=== PATIENT | female | born 1965 | race Caucasian/White ===

== ENCOUNTER 2016-09-23 00:53 | Inpatient (IN) ==
--- NOTE | 2016-09-23 01:28 | Emergency Department Note ---
Evelia Fleming Brittany, am scribing for, and in the presence of, Kaila Alvarez DO 01: 19. IAntonio Debra, DO, personally performed the services described in this documentation, ascribed by Carmelita Altamirano in my presence, and it is both accurate and complete . Arrival - Arrival Chief Complaint: Extremity Injury Stated Complaint: R hip fx ED Nursing Triage Note: C/C transfer from [facility] ER for right hip fracture. Pt states she lost balance and fell. Mode of Arrival: Stretcher Limitations: No Limitations Source: Patient - History of Present Illness HPI Narrative: This is a 51 y/o white female,who presents to the ED by EMS for further evaluation of a right hip FX. She was transferred from [facility] after she fell and fractured the right hip. She states she was at home making a salad when her right leg gave out and she fell. She is a known [facility] patient. She complains of right hip pain. Pt has no other complaints/pain in the ED at this time. Pt has a PMHx of bipolar, herniated disk, and back/neck problems. Pt has had a hysterectomy, appendectomy, and tonsilectomy. Pt is a current every day smoker. 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) Consistency: constant Severity: moderate Allergies/Adverse Reactions: Allergies Allergy/AdvReac Type Severity Reaction Status Date / Time cephalexin [From Keflex] Allergy Unknown/Unable Verified 09/23/16 01:08 to obtain Erythromycin Base Allergy Unknown/Unable Verified 09/23/16 01:08 to obtain penicillin G AdvReac ANAPHYLAXIS Verified 09/23/16 01:08 Review of System - Review of System 12 point system: reviewed and no additional remarkable complaints except as stated - Review of System Review of Systems: Fall Musculoskeletal: Present: leg pain (Right hip fracture) Medical,Surgical,& Family Hx - Medical History Psychological: History of: Bipolar Disorder Musculoskeletal: History of: Back/Neck Problems, Herniated Disk, Musculoskeletal Problems (Dr Mercedes pt) - Surgical History HEENT Surgeries: Surgical HX of: Tonsilectomy & Adenoidectomy Abdominal Surgeries: Surgical HX of: Appendectomy Reproductive Surgeries: Surgical HX of;: Hysterectomy - Social History Smoking Status: Current every day smoker Frequency of Alcohol Use: None Type of Drug Use: None Exam Vital Signs: Vital Signs Temperature 97 F L 09/23/16 00:54 Pulse Rate 89 09/23/16 01:14 Respiratory Rate 14 09/23/16 00:54 Blood Pressure 158/99 09/23/16 00:54 O2 Sat by Pulse Oximetry 95 09/23/16 00:54 - Eye Eye exam: Present: normal appearance, PERRL, EOMI. Absent: conjunctival injection, nystagmus, miosis, mydriasis - ENT ENT exam: Present: normal exam, normal oropharynx, mucous membranes moist, other (Edentulous) - Neck Neck exam: Present: normal inspection, full ROM, trachea midline. Absent: tenderness, meningismus, lymphadenopathy, thyromegaly - Chest Chest inspection: Present: normal inspection, symmetric chest wall rise. Absent : tenderness, rash, abscess - Respiratory Respiratory exam: Present: normal lung sounds bilaterally. Absent: rales, respiratory distress, rhonchi, stridor, wheezes - Cardiovascular Cardiovascular exam: Present: regular rate, normal rhythm, normal heart sounds. Absent: murmur, rubs, gallop, clicks, JVD - Abdominal Exam Abdominal exam: Present: soft, normal bowel sounds. Absent: distention, tenderness, guarding, rebound, rigidity - Rectal Exam Rectal exam: Present: deferred - Extremities Exam Extremities exam: Present: tenderness (Right hip tendnerness), normal capillary refill. Absent: pedal edema, joint swelling, calf tenderness - Expanded Lower Right Lower Hip/Pelvis exam: Present: internal rotation, shortening Upper leg exam: Present: normal inspection, full ROM Knee exam: Present: normal inspection, full ROM Lower leg exam: Present: normal inspection, full ROM Ankle exam: Present: normal inspection, full ROM Foot/toe exam: Present: normal inspection, full ROM Neurovascular/Tendon exam: Present: normal capillary refill - Back Exam Back exam: Present: normal inspection, full ROM. Absent: tenderness, muscle spasm, rashes - Neurological Exam Neurological exam: Present: alert, oriented X3, CN II-XII intact. Absent: motor sensory deficit - Psychiatric Psychiatric exam: Present: normal affect, normal mood. Absent: depressed, agitated, anxious, flat affect, manic - Skin Skin exam: Present: warm, dry, intact, normal color. Absent: rash, cyanosis, diaphoresis, erythema, pallor, mottled Course Course Narrative: spoke with Dr Rodriguez who will admit pt Disposition Clinical Impression: Closed right hip fracture Case discussed with: patient Disposition: Still a Patient Condition: Stable Time of Disposition: 01:26
[2016-09-23] MEDS ORDERED: MAGNESIUM HYDROXIDE SUSP 30 ML UDCUP PO PRN ×2 (01:38→15:28)
[2016-09-23] MEDS ORDERED: MORPHINE 2 MG/1 ML SYRINGE ONE (01:38)
[2016-09-23] MEDS ORDERED: MORPHINE 2 MG/1 ML SYRINGE IV STA (01:38)
[2016-09-23] MEDS: DEXTROSE 5% NACL 0.45% 1,000 ML IV SCH ×2 (03:13→18:01)
[2016-09-23] MEDS: MORPHINE 2 MG/1 ML SYRINGE IV SCH ×8 (03:15→18:04)
--- NOTE | 2016-09-23 06:53 | Orthopedic History & Physical ---
Assessment and Plan (1) Intertrochanteric fracture of right femur Status: Acute Assessment and plan: Discussed injury with she and her mom this morning. I had a difficult time explaining the injury and procedure to them as they continue to interrupt with her chronic complaints of back pain and numbness in arms and legs. Eventually, I was able to describe the fracture and the need for fixation. I explained with would be doing an open reduction and fixation of the fracture. She would have restricted weightbearing for approximately 4 weeks due to the comminuted nature of the fracture and the risks of hardware failure or fracture displacement.. Also noted that she has significant osteoarthritis of the hip will likely need to be addressed down the road at some point. Risks, alternatives, and benefits to undergoing this procedure were discussed in great detail, the patient voiced understanding desire proceed. Risks discussed included, but were not limited to, bleeding, infection, damage to arteries and nerves, nonunion, malunion, need for revision surgery, as well as medical complications. Due to her chronic back and leg issues as well as her hip fracture, she would benefit from inpatient rehab if this can be arranged postoperatively. Current Visit: Yes Qualifiers: Encounter type: initial encounter Fracture type: closed Qualified Code(s) : S72.141A - Displaced intertrochanteric fracture of right femur, initial encounter for closed fracture History of Present Illness Chief complaint: Right hip pain History of present illness: Ms. Brand is a 51 year old female who had a fall onto her right side earlier today. She denies any syncope or presyncopal symptoms. She has significant issues with her legs complains of chronic numbness, she gets back and neck injections by Dr. Mercedes. She denies any antecedent hip pain. She is transferred from [facility] after diagnosis of a right proximal femur fracture. Home Medications Medication Instructions Recorded Confirmed Type Acyclovir [Acyclovir Cap/Tab] 400 mg PO BID 09/23/16 09/23/16 History Gabapentin 800 mg PO QID 09/23/16 09/23/16 History OLANZapine [Olanzapine Odt] 10 mg SL BEDTIME 09/23/16 09/23/16 History Quetiapine Fumarate 400 mg PO BEDTIME 09/23/16 09/23/16 History Temazepam 30 mg PO BEDTIME 09/23/16 09/23/16 History clonazePAM [Clonazepam] 2 mg PO BID 09/23/16 09/23/16 History Allergies Allergy/AdvReac Type Severity Reaction Status Date / Time cephalexin [From Keflex] Allergy Unknown/Unable Verified 09/23/16 01:08 to obtain Erythromycin Base Allergy Unknown/Unable Verified 09/23/16 01:08 to obtain penicillin G AdvReac ANAPHYLAXIS Verified 09/23/16 01:08 12 point system: reviewed and no additional remarkable complaints except as stated Medical,Surgical,& Family Hx - Medical History Psychological: History of: Bipolar Disorder Respiratory: History of: COPD Genitourinary: History of: Bladder Problem Gastrointestinal: History of: Pancreatitis Musculoskeletal: History of: Back/Neck Problems, Herniated Disk, Musculoskeletal Problems (Dr Mercedes pt) - Surgical History HEENT Surgeries: Surgical HX of: Tonsilectomy & Adenoidectomy Abdominal Surgeries: Surgical HX of: Appendectomy, Cholecystectomy, EGD Reproductive Surgeries: Surgical HX of;: Hysterectomy Orthopedic Surgeries: Surgical HX of;: Orthopedic Surgery (carpal tunnel surgery twice on right wrist) - Social History Smoking Status: Current every day smoker Frequency of Alcohol Use: None Type of Drug Use: None Exam - Constitutional Vitals: Period Temp Pulse Resp BP Sys/Soto Pulse Ox Last 24 Hr 97 F-97.2 F 81-94 18-22 146-157/90-96 94-99 Exam: General appearance: no acute distress Head exam: normal inspection Eye exam: EOMI Neck exam: normal inspection Respiratory exam: clear to auscultation bilaterally Cardiovascular exam: regular GI/Abdominal exam: normal bowel sounds Right lower extremity: Slight external rotation. Nontender the knee ankle and foot. She does not cooperate very much with exam but she will wiggle her toes a little bit. She has a palpable dorsalis pedis pulse. Results - Diagnostic Findings Procedure: X-ray: image reviewed by me (Comminuted intratrochanteric fracture of the right femur)
[2016-09-23] MEDS ORDERED: CLINDAMYCIN INJ 900 MG in PREMIX 1 EACH IV ONE (07:46)
--- NOTE | 2016-09-23 08:08 | EKG Report ---
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
[2016-09-23] MEDS: LACTATED RINGERS 1,000 ML IV SCH ×2 (13:56→18:06)
[2016-09-23] MEDS ORDERED: ONDANSETRON 4 MG/2 ML VIAL IV PRN (15:28)
[2016-09-23] MEDS ORDERED: NALOXONE 0.4 MG/ML VIAL IV PRN (15:28)
[2016-09-23] MEDS ORDERED: ACETAMINOPHEN 325 MG TABLET PO PRN (15:28)
[2016-09-23] MEDS ORDERED: MORPHINE PCA 30 MG/30 ML SYRINGE IV SCH (15:30)
--- NOTE | 2016-09-23 15:37 | XRay Report ---
XR hip OR RT Indication: Intraoperative C-arm fluoroscopy. Comparison: None. Technique: A total of 3 images were obtained intraoperatively using C-arm fluoroscopy. Findings: Images were reviewed and deemed satisfactory by the operative physician. Total fluoroscopy time was not listed. Impression: 1. C-arm usage as detailed. 09/23/2016 3:32 PM PROCEDURE INTERPRETED AT [facility] DEPARTMENT OF RADIOLOGY Final Report Signed by: Dr. Louis Reed
[2016-09-23] MEDS ORDERED: MORPHINE PCA 30 MG/30 ML SYRINGE IV ONE (15:55)
[2016-09-23] MEDS ORDERED: PROPOFOL 200 MG/20 ML VIAL IV ONE (16:05)
[2016-09-23] MEDS ORDERED: MIDAZOLAM 2 MG/2 ML VIAL ONE (16:06)
[2016-09-23] MEDS ORDERED: fentaNYL 100 MCG/2 ML VIAL ONE (16:06)
[2016-09-23] MEDS ORDERED: ACETAMINOPHEN 1,000 MG/100 ML VIAL IV ONE (16:06)
[2016-09-23] MEDS ORDERED: ONDANSETRON 4 MG/2 ML VIAL ONE (16:06)
[2016-09-23] MEDS ORDERED: KETOROLAC 30 MG/1 ML VIAL ONE (16:06)
[2016-09-23] MEDS ORDERED: METOCLOPRAMIDE 10 MG/2 ML VIAL ONE (16:07)
[2016-09-23] MEDS ORDERED: SEVOFLURANE 1 UNIT/15 MINUTE INH ONE (16:07)
--- NOTE | 2016-09-23 16:13 | Anesthesia Post-Op ---
Anesthesia Post OP - Post Ansesthetic Evaluation Patient seen in post op: Yes Resp: within normal limits CV: within normal limits Mental: within normal limits Temp: within normal limits [id number]: within normal limits Nausea and Vomiting: within normal limits Pain: within normal limits
[2016-09-23] MEDS: GABAPENTIN 400 MG CAPSULE PO SCH ×2 (18:12→20:59)
[2016-09-23] MEDS: QUEtiapine 100 MG TABLET PO SCH (20:59)
[2016-09-23] MEDS: clonazePAM 0.5 MG TABLET PO SCH ×2 (20:59→21:43)
[2016-09-23] MEDS: TEMAZEPAM 15 MG CAPSULE PO SCH (21:00)
[2016-09-23] MEDS: ACYCLOVIR 200 MG CAPSULE PO SCH (21:00)
[2016-09-23] MEDS: ACETAMINOPHEN 500 MG TABLET PO SCH (21:00)
[2016-09-23] MEDS: OLANZapine 5 MG TABLET PO SCH (21:00)
[2016-09-23] MEDS: CLINDAMYCIN INJ 900 MG in PREMIX 1 EACH IV SCH (21:06)
[2016-09-24] MEDS: DEXTROSE 5% NACL 0.45% 1,000 ML IV SCH ×2 (00:53→05:11)
[2016-09-24] MEDS: MORPHINE 2 MG/1 ML SYRINGE IV SCH ×6 (00:54→18:43)
[2016-09-24] MEDS: ACETAMINOPHEN 500 MG TABLET PO SCH ×3 (01:05→13:07)
[2016-09-24 04:33] LABS: Basophils # 0.1 10*3/uL (0.0-0.2); Basophils % 0.8 % (0.0-0.8); Eosinophils # 0.3 10*3/uL (0.0-0.87); Eosinophils % 4.6 % (0.00-10.9); Hematocrit 33.7 VOL% (35.7-47.0); Hemoglobin 10.9 GM/DL (12.0-16.0); Immature Granulocytes % 0.5 %; Immature Granulocytes Absolute 0.03 #; Lymphocytes % 30.8 % (21.3-54.2); Mean Corpuscular HGB Conc 32.3 GM/DL (32-36); Mean Corpuscular Hemoglobin 32 PG (27-34); Mean Corpuscular Volume 97.7 FL (87-102); Mean Platelet Volume 9.5 FL (9.6-12.0); Monocytes # 0.6 10*3/uL (0.11-0.8); Monocytes % 9.4 % (1.7-12.7); Neutrophils # 3.5 10*3/uL (1.4-7.4); Neutrophils % 53.9 % (38.7-73.9); Platelet Count 285 T/CUMM (130-400); Red Blood Count 3.45 MC/CUMM (3.8-5.5); Red Cell Distribution Width 14.6 % (9.3-17.3); White Blood Count 6.5 T/CUMM (4-12)
[2016-09-24 04:58] LABS: Calcium 8.1 MG/DL (8.5-10.1); Osmolality,Calculated 285.8 MOS/KG (273-304); Potassium 3.9 MMOL/L (3.5-5.1)
[2016-09-24] MEDS: CLINDAMYCIN INJ 900 MG in PREMIX 1 EACH IV SCH (05:23)
[2016-09-24] MEDS: GABAPENTIN 400 MG CAPSULE PO SCH ×4 (09:13→21:29)
[2016-09-24] MEDS: clonazePAM 0.5 MG TABLET PO SCH (09:13)
[2016-09-24] MEDS: ACYCLOVIR 200 MG CAPSULE PO SCH ×2 (09:13→21:29)
--- NOTE | 2016-09-24 09:45 | Orthopedic Progress Note ---
Assessment and Plan (1) Intertrochanteric fracture of right femur Status: Acute Assessment and plan: DVT prophylaxis Continue therapy I have encouraged the patient to stay out of bed as much as possible Discharge planning for swing bed Current Visit: Yes Qualifiers: Encounter type: initial encounter Fracture type: closed Qualified Code(s) : S72.141A - Displaced intertrochanteric fracture of right femur, initial encounter for closed fracture Orthopedics - Subjective Interval history: Patient is sitting in the bedside chair this morning, her pain is currently controlled. She desires to get back in bed. On exam, dressings clean and dry, neurovascular exam the right lower extremity is unchanged Exam - Constitutional Vitals: Period Temp Pulse Resp BP Sys/Soto Pulse Ox Last 24 Hr 97 F-97.6 F 84-107 15-20 82-164/43-98 92-100 Results - Labs CBC & BMP: 09/24/16 03:51 09/24/16 03:51
[2016-09-24] MEDS: OLANZapine 5 MG TABLET PO SCH (21:29)
[2016-09-25] MEDS: QUEtiapine 100 MG TABLET PO SCH ×3 (00:06→20:51)
[2016-09-25] MEDS: TEMAZEPAM 15 MG CAPSULE PO SCH ×3 (00:06→20:54)
[2016-09-25] MEDS: MORPHINE 2 MG/1 ML SYRINGE IV SCH ×3 (00:06→06:59)
[2016-09-25] MEDS: clonazePAM 0.5 MG TABLET PO SCH ×3 (00:06→10:01)
[2016-09-25 02:59] LABS: Basophils # 0.1 10*3/uL (0.0-0.2); Basophils % 0.7 % (0.0-0.8); Eosinophils # 0.5 10*3/uL (0.0-0.87); Hematocrit 31.7 VOL% (35.7-47.0); Hemoglobin 10.4 GM/DL (12.0-16.0); Immature Granulocytes % 0.4 %; Immature Granulocytes Absolute 0.03 #; Lymphocytes # 2.4 10*3/uL (1.4-4.0); Lymphocytes % 31.1 % (21.3-54.2); Mean Corpuscular HGB Conc 32.8 GM/DL (32-36); Mean Corpuscular Hemoglobin 32 PG (27-34); Mean Corpuscular Volume 97.8 FL (87-102); Monocytes # 0.6 10*3/uL (0.11-0.8); Monocytes % 7.4 % (1.7-12.7); Neutrophils # 4.2 10*3/uL (1.4-7.4); Neutrophils % 54.4 % (38.7-73.9); Platelet Count 255 T/CUMM (130-400); Red Blood Count 3.24 MC/CUMM (3.8-5.5); Red Cell Distribution Width 14.6 % (9.3-17.3); White Blood Count 7.7 T/CUMM (4-12)
[2016-09-25] MEDS: ENOXAPARIN 40 MG/0.4 ML SYRINGE SUBCUT SCH ×2 (08:09→10:00)
--- NOTE | 2016-09-25 08:36 | Orthopedic Progress Note ---
Assessment and Plan (1) Intertrochanteric fracture of right femur Status: Acute Assessment and plan: DVT prophylaxis Continue therapy twice daily Discharge planning for swing bed Consult Dr. Fallon for pain management, patient known to him Current Visit: Yes Qualifiers: Encounter type: initial encounter Fracture type: closed Qualified Code(s) : S72.141A - Displaced intertrochanteric fracture of right femur, initial encounter for closed fracture Orthopedics - Subjective Interval history: Patient complains of pain in the right hip. States her [place] is not helping. On exam dressings clean and dry, she is neurovascularly intact. Exam - Constitutional Vitals: Period Temp Pulse Resp BP Sys/Soto Pulse Ox Last 24 Hr 96.6 F-98.4 F 81-99 16-20 93-105/50-68 90-94 Results - Labs CBC & BMP: 09/25/16 02:43 09/24/16 03:51
[2016-09-25] MEDS: ACYCLOVIR 200 MG CAPSULE PO SCH ×2 (10:00→20:53)
[2016-09-25] MEDS: GABAPENTIN 400 MG CAPSULE PO SCH ×4 (10:01→20:51)
[2016-09-25] MEDS: oxyCODONE/ACETAMINOPHEN 5-325 MG TABLET PO PRN ×3 (12:02→20:53)
[2016-09-25] MEDS: DEXTROSE 5% NACL 0.45% 1,000 ML IV SCH (16:18)
[2016-09-25] MEDS ORDERED: oxyCODONE/ACETAMINOPHEN 5-325 MG TABLET PO PRN (16:33)
--- NOTE | 2016-09-25 16:33 | Pain Management Consult Note ---
Assessment and Plan (1) Chronic pain following surgery or procedure Status: Acute Assessment and plan: will add duragesic patch and percocet Current Visit: Yes History of Present Illness Chief complaint: Right hip pain History of present illness: Ms. Brand is a 51 year old female Patient is postop after a right hip fracture repair on Sunday night. Patient is having significant pain and is requesting increase in medications. I will try a Duragesic patch to help with sustained pain relief and she can have Percocet as needed for pain Home Medications Medication Instructions Recorded Confirmed Type Acyclovir [Acyclovir Cap/Tab] 400 mg PO BID 09/23/16 09/23/16 History Gabapentin 800 mg PO QID 09/23/16 09/23/16 History OLANZapine [Olanzapine Odt] 10 mg SL BEDTIME 09/23/16 09/23/16 History Quetiapine Fumarate 400 mg PO BEDTIME 09/23/16 09/23/16 History Temazepam 30 mg PO BEDTIME 09/23/16 09/23/16 History clonazePAM [Clonazepam] 2 mg PO BID 09/23/16 09/23/16 History Allergies Allergy/AdvReac Type Severity Reaction Status Date / Time cephalexin [From Keflex] Allergy Unknown/Unable Verified 09/23/16 01:08 to obtain Erythromycin Base Allergy Unknown/Unable Verified 09/23/16 01:08 to obtain penicillin G AdvReac ANAPHYLAXIS Verified 09/23/16 01:08 Medical,Surgical,& Family Hx - Medical History Psychological: History of: Bipolar Disorder Respiratory: History of: COPD Genitourinary: History of: Bladder Problem Gastrointestinal: History of: Pancreatitis Musculoskeletal: History of: Back/Neck Problems, Herniated Disk, Musculoskeletal Problems (Dr Mercedes pt) - Surgical History HEENT Surgeries: Surgical HX of: Tonsilectomy & Adenoidectomy Abdominal Surgeries: Surgical HX of: Appendectomy, Cholecystectomy, EGD Reproductive Surgeries: Surgical HX of;: Hysterectomy Orthopedic Surgeries: Surgical HX of;: Orthopedic Surgery (carpal tunnel surgery twice on right wrist) - Social History Smoking Status: Current every day smoker Frequency of Alcohol Use: None Type of Drug Use: None 12 point system: reviewed and no additional remarkable complaints except as stated Exam - Constitutional Vitals: Period Temp Pulse Resp BP Sys/Soto Pulse Ox Last 24 Hr 96.6 F-98.4 F 81-102 12-24 98-118/53-72 89-94 General appearance: mild distress - Head Head exam: Present: normal inspection - Eye Eye exam: Present: EOMI Pupils: Present: RANJANA - ENT ENT exam: Present: normal exam Ear exam: Present: intact Mouth exam: Present: normal external inspection - Neck Neck exam: Present: normal inspection - Respiratory Respiratory exam: Present: clear to auscultation bilaterally - Cardiovascular Cardiovascular exam: Present: RRR - GI/Abdominal GI/Abdominal exam: Present: normal bowel sounds - Expanded Right Lower Hip exam: Present: tenderness, ecchymosis Upper Leg exam: Present: tenderness Knee exam: Present: normal inspection Lower leg exam: Present: normal inspection Ankle exam: Present: normal inspection Foot/Toe exam: Present: normal inspection Neuro vascular tendon exam: Present: significant pain with passive ROM of distal joint Gait: Present: not tested/not observed - Back Exam Back exam: Present: normal inspection, vertebral tenderness - Neurological Exam Neurological exam: Present: alert, oriented X3 Results - Labs CBC & BMP: 09/25/16 02:43 09/24/16 03:51 Lab Results: I have reviewed the past 24 hour labs Specialty Discharge - Follow Up or Referrals Follow up with: Amandeep Rodriguez MD [Physician] - 10/26/16 12:30 pm
[2016-09-25] MEDS ORDERED: fentaNYL 25 MCG/HR PATCH TRANSDERM SCH (17:00)
[2016-09-25] MEDS: OLANZapine 5 MG TABLET PO SCH (20:51)
[2016-09-26 04:46] LABS: Basophils % 0.5 % (0.0-0.8); Eosinophils # 0.5 10*3/uL (0.0-0.87); Eosinophils % 6.6 % (0.00-10.9); Hematocrit 32.8 VOL% (35.7-47.0); Hemoglobin 10.5 GM/DL (12.0-16.0); Immature Granulocytes % 0.8 %; Immature Granulocytes Absolute 0.06 #; Lymphocytes # 2.8 10*3/uL (1.4-4.0); Lymphocytes % 38.2 % (21.3-54.2); Mean Corpuscular Hemoglobin 32 PG (27-34); Mean Corpuscular Volume 99.4 FL (87-102); Mean Platelet Volume 9.3 FL (9.6-12.0); Monocytes # 0.6 10*3/uL (0.11-0.8); Monocytes % 7.8 % (1.7-12.7); Neutrophils # 3.4 10*3/uL (1.4-7.4); Neutrophils % 46.1 % (38.7-73.9); Platelet Count 291 T/CUMM (130-400); Red Cell Distribution Width 14.5 % (9.3-17.3); White Blood Count 7.4 T/CUMM (4-12)
[2016-09-26] MEDS: oxyCODONE/ACETAMINOPHEN 5-325 MG TABLET PO PRN ×3 (05:14→13:11)
--- NOTE | 2016-09-26 05:56 | Pain Management Progress Note ---
Assessment and Plan (1) Chronic pain following surgery or procedure Status: Acute Assessment and plan: will add duragesic patch and percocet 09/26 continue current medications for pain until transferred to swing bed and continue same in swing bed Current Visit: Yes Pain - Subjective Interval history: Patient reports herself that the pain is better controlled since I added the Duragesic patch and give her Percocet as needed for pain. I have impressed on the patient that she will have some breakthrough pain due to recent hip surgery but overall she is better and she is ready for swing bed whenever that is arranged Exam - Constitutional Vitals: Period Temp Pulse Resp BP Sys/Soto Pulse Ox Last 24 Hr 97.0 F-99.4 F 86-109 12-24 100-118/58-82 89-96 General appearance: no acute distress - Head Head exam: Present: normal inspection - Eye Eye exam: Present: EOMI Pupils: Present: RANJANA - ENT ENT exam: Present: normal exam Ear exam: Present: intact Mouth exam: Present: normal external inspection - Neck Neck exam: Present: normal inspection - Respiratory Respiratory exam: Present: clear to auscultation bilaterally - Cardiovascular Cardiovascular exam: Present: RRR - GI/Abdominal GI/Abdominal exam: Present: normal bowel sounds - Expanded Right Lower Hip exam: Present: tenderness Upper Leg exam: Present: tenderness Knee exam: Present: normal inspection Lower leg exam: Present: normal inspection Ankle exam: Present: normal inspection Foot/Toe exam: Present: normal inspection Neuro vascular tendon exam: Present: no vascular compromise Gait: Present: not tested/not observed - Back Exam Back exam: Present: vertebral tenderness - Neurological Exam Neurological exam: Present: alert, oriented X3 - Skin Skin exam: Present: normal color Results - Labs CBC & BMP: 09/26/16 04:28 09/24/16 03:51 Lab Results: I have reviewed the past 24 hour labs Specialty Discharge - Follow Up or Referrals Follow up with: Amandeep Rodriguez MD [Physician] - 10/26/16 12:30 pm
--- NOTE | 2016-09-26 08:11 | Discharge Summary ---
Hospital Course - Hospital Course Hospital Course: 51-year-old female admitted to the hospital after sustaining a right hip fracture after fall. She was taken to the operating suite for fixation of the fracture. She tolerated procedure well transferred for stable condition postoperatively. She received routine antibiotics and thromboprophylaxis. Dr. Mercedes was consulted for aid in pain management as she is a current patient of [facility]. Due to her spine and lower extremity issues she had difficulty with physical therapy which necessitated postoperative swing bed. Once a bed was available she was medically stable she was discharged. At the time of discharge her wound was clean and dry she is neurovascularly intact in the right lower extremity. Diagnosis - Discharge Diagnosis (1) Intertrochanteric fracture of right femur Status: Acute Specialty Discharge - Follow Up or Referrals Follow up with: Amandeep Rodriguez MD [Physician] - 10/26/16 12:30 pm Discharge Plan - Discharge Data Disposition: Swing Bed, Hos Based, [facility] Condition at Discharge: Stable Discharge Diet: advance to your usual diet Activity: ambulate only with your walker Hygiene: may shower Weight Bearing at Discharge: partial weight bearing (30 pounds partial weightbearing right lower extremity) Driving: not until seen by doctor Contact your physician if you experience:: fever over 101, Difficulty voiding, Redness or swelling, Nausea/Vomiting, Shortness of breath, Bleeding, pain uncontrolled by pain medications Wound / Dressing Care Instructions: Begin daily dressing change to right hip on . Okay to shower, no tub soaks. Julia out October 12, 2016 - Discharge Medications New Aspirin EC Tab 325 mg PO DAILY #30 tablet fentaNYL 25 MCG/HR PATCH [Duragesic 25 Patch] 1 patch TRANSDERM Q3DAY #10 patch oxyCODONE/ACETAMINOPHEN 5-325 [Percocet 5-325] 1 - 2 tablet PO Q6H PRN #60 tablet PRN Reason: Pain Moderate (4-7) Acetaminophen Tab [Tylenol Tab] 650 mg PO Q6H PRN #0 tablet PRN Reason: Pain Mild (1-3) Magnesium Hydroxide Susp [Milk of Magnesia] 30 ml PO Q6H PRN #0 PRN Reason: Constipation Continue OLANZapine [Olanzapine Odt] 10 mg SL BEDTIME Gabapentin 800 mg PO QID clonazePAM [Clonazepam] 2 mg PO BID Acyclovir [Acyclovir Cap/Tab] 400 mg PO BID Quetiapine Fumarate 400 mg PO BEDTIME Temazepam 30 mg PO BEDTIME - Follow Up or Referral Follow Up: Amandeep Rodriguez MD [Physician] - 10/26/16 12:30 pm - Forms/Instructions Instructions: Open Reduction and Internal Fixation of a Hip Fracture (DC) Exam - Constitutional Vitals: Period Temp Pulse Resp BP Sys/Soto Pulse Ox Last 24 Hr 97.7 F-99.4 F 96-109 12-24 108-118/63-82 89-96 Discharge Results Labs on day of discharge: Labs from last 24 hours 09/26/16 04:28 WBC 7.4 RBC 3.30 L Hgb 10.5 L Hct 32.8 L MCV 99.4 MCH 32 MCHC 32.0 RDW 14.5 Plt Count 291 MPV 9.3 L Neut % (Auto) 46.1 Lymph % (Auto) 38.2 [place] % (Auto) 7.8 Eos % (Auto) 6.6 Baso % (Auto) 0.5 Neut # (Auto) 3.4 Lymph # (Auto) 2.8 [place] # (Auto) 0.6 Eos # (Auto) 0.5 Baso # (Auto) 0.0 Immature Gran % 0.8 Nucleated RBC % 0.0 Immature Gran # 0.06 Nucleated RBCs # 0.00 DS: Provider Date of admission: 09/23/16 01:38 Primary care physician: . No PCP Attending physician on admission: Amandeep Rodriguez MD Consults: 09/23/16 15:28 Consult to Physical Therapy [CONS] Routine Reason for Physical Therapy: Evaluate and Treat Start Therapy: Tomorrow Consult Comment: 20lb PWB RLE 09/25/16 08:35 Consult to Physician [CONS] Routine Comment: Consulting Provider: Santosh Mercedes Consulting Provider Notified: Yes When should Consulting Provider be notified: Now Person Notified: Willa called Date Notified: 09/25/16 Time Notified: 08:44 Discharging clinician: Amandeep Rodriguez MD
[2016-09-26] MEDS: clonazePAM 0.5 MG TABLET PO SCH (09:25)
[2016-09-26] MEDS: ACYCLOVIR 200 MG CAPSULE PO SCH (09:26)
[2016-09-26] MEDS: ENOXAPARIN 40 MG/0.4 ML SYRINGE SUBCUT SCH (09:26)
[2016-09-26] MEDS: GABAPENTIN 400 MG CAPSULE PO SCH ×2 (09:26→13:11)
[2016-09-26 11:54] VITALS: BP 99/62
== END 2016-09-26 14:30 | DRG 308 ==
LOC: EDBD → EDUNIT# → N.ED 00:53 → N.EDINP 01:38 → N.3E 02:04
PROVIDERS: ADMIT Orthopaedic Surgery; ATTEND Orthopaedic Surgery

== ENCOUNTER 2017-01-01 05:48 | Inpatient (IN) ==
[2017-01-01] MEDS ORDERED: VANCOMYCIN INJ 1,000 MG in SODIUM CHLORIDE 0.9% 250 ML IV ONE ×2 (06:00→18:30)
[2017-01-01] MEDS ORDERED: CLINDAMYCIN INJ 900 MG in PREMIX 1 EACH IV ONE (06:00)
[2017-01-01] MEDS ORDERED: CLINDAMYCIN INJ 50 ML IV ONE (06:09)
[2017-01-01] MEDS ORDERED: VANCOMYCIN 1,000 MG VIAL ONE (06:09)
[2017-01-01] MEDS ORDERED: NEOMYCIN/POLYMYXIN/BACITRACIN OINT 28.4 GM TUBE TOP ONE (06:36)
--- NOTE | 2017-01-01 06:48 | History and Physical Update ---
History and Physical Update - History and Physical H&P was reviewed, the patient examined and there: are no changes in the patients condition since last H&P was completed.
[2017-01-01] MEDS ORDERED: LACTATED RINGERS 1,000 ML IV SCH (07:00)
[2017-01-01] MEDS ORDERED: GLYCOPYRROLATE 0.4 MG/2 ML VIAL ONE (07:09)
[2017-01-01] MEDS ORDERED: EPINEPHrine 1 MG/ML VIAL ONE (07:09)
[2017-01-01] MEDS ORDERED: LIDOCAINE 2% 5 ML VIAL ONE (07:09)
[2017-01-01] MEDS ORDERED: KETOROLAC 30 MG/1 ML VIAL ONE (07:09)
[2017-01-01] MEDS ORDERED: SUCCINYLCHOLINE 200 MG/10 ML VIAL ONE (07:09)
[2017-01-01] MEDS ORDERED: hydrALAZINE 20 MG/1 ML VIAL ONE (07:09)
[2017-01-01] MEDS ORDERED: NEOSTIGMINE 10 MG/10 ML VIAL ONE (07:09)
[2017-01-01] MEDS ORDERED: PROPOFOL 200 MG/20 ML VIAL IV ONE ×2 (07:09→09:19)
[2017-01-01] MEDS ORDERED: ROCURONIUM 100 MG/10 ML VIAL IV ONE (07:09)
[2017-01-01] MEDS ORDERED: ONDANSETRON 4 MG/2 ML VIAL ONE (07:09)
[2017-01-01] MEDS ORDERED: PHENYLEPHRINE 50 MG/5 ML VIAL ONE (07:09)
[2017-01-01] MEDS ORDERED: LABETALOL 100 MG/20 ML VIAL IV ONE (07:09)
[2017-01-01] MEDS ORDERED: oxyCODONE IR 5 MG TABLET PO PRN ×2 (07:22)
[2017-01-01] MEDS ORDERED: MAGNESIUM HYDROXIDE SUSP 30 ML UDCUP PO PRN (07:22)
[2017-01-01] MEDS ORDERED: HYDROmorphone 2 MG/1 ML VIAL IV PRN ×3 (07:22→09:36)
[2017-01-01] MEDS ORDERED: diphenhydrAMINE CAP 25 MG CAPSULE PO PRN (07:22)
[2017-01-01] MEDS ORDERED: ONDANSETRON 4 MG/2 ML VIAL IV PRN ×2 (07:22→09:36)
[2017-01-01] MEDS ORDERED: TRANEXAMIC ACID 1,000 MG/10 ML VIAL IV ONE (07:42)
[2017-01-01] MEDS ORDERED: ALBUMIN 5% 12.5 GM/250 ML VIAL IV ONE ×2 (08:18→09:21)
[2017-01-01] MEDS ORDERED: ACETAMINOPHEN 1,000 MG/100 ML VIAL IV ONE (09:20)
[2017-01-01] MEDS ORDERED: ePHEDrine 50 MG/ML AMP ONE (09:20)
[2017-01-01] MEDS ORDERED: MIDAZOLAM 2 MG/2 ML VIAL ONE (09:20)
[2017-01-01] MEDS ORDERED: fentaNYL 100 MCG/2 ML VIAL ONE (09:21)
[2017-01-01] MEDS ORDERED: SEVOFLURANE 1 UNIT/15 MINUTE INH ONE (09:21)
[2017-01-01 09:24] LABS: Apearance,Urine CLEAR (Clear); Bacteria,Urine Occasional /HPF (Few); Bilirubin,Urine Negative (Negative); Blood, Urine Negative (Negative); Glucose,Urine (UA) Negative (Negative); Ketones,Urine Negative (Negative); Nitrite,Urine Negative (Negative); Protein,Urine Negative; RBC,Urine <1 /HPF (0-4); Squamous Epithelial Cell,Urine Occasional /HPF (0-10); Urine Color Straw (Yellow); Urine Specific Gravity 1.003 (1.001-1.035); Urine Urobilinogen < 2.0 EU/DL (0.2-1.0); WBC,Urine <1 /HPF (0-6)
[2017-01-01] MEDS: DOCUSATE SODIUM 100 MG CAPSULE PO SCH ×2 (09:49→20:27)
[2017-01-01] MEDS: KETOROLAC 30 MG/1 ML VIAL IV SCH ×3 (09:49→20:27)
[2017-01-01] MEDS: LACTATED RINGERS 1,000 ML IV SCH ×3 (09:49→21:20)
[2017-01-01] MEDS: ACYCLOVIR 200 MG CAPSULE PO SCH ×2 (10:02→20:26)
[2017-01-01] MEDS: GABAPENTIN 400 MG CAPSULE PO SCH ×4 (10:02→20:38)
--- NOTE | 2017-01-01 10:09 | XRay Report ---
Exam: XR hip 1V RT Date: 01/01/2017 7:25 AM Comparison: 09/22/2016, 09/23/2016 Indication: Postop Technique:[Portable AP right hip] Findings: Interval removal of the metallic hardware noted on prior exam. Satisfactory right total hip replacement with postoperative changes. Impression: Interval satisfactory right total hip replacement. PROCEDURE INTERPRETED AT [facility] [place] DEPARTMENT OF RADIOLOGY Final Report Signed by: Dr. Nichole Groves
--- NOTE | 2017-01-01 10:10 | Operative Note ---
Date of procedure: 01/01/17 Procedure: DIAGNOSIS: Right hip avascular necrosis, status post ORIF peritrochanteric hip fracture PROCEDURE: Conversion to right total hip arthroplasty (CPT#74010) SURGEON: Angely ASST: Cruz Recinos ANESTHESIA: General PROCEDURE and FINDINGS: After adequate anesthesia was induced, the patient was placed in lateral decubitus position. Left lower extremities prepped and draped in usual sterile fashion. Posteriolateral approach to the hip was made. Skin, subcutaneous tissue and deep fascia was incised longitudinally. Gluteus satinder muscle belly was split in line with its fibers. The vastus lateralis was elevated from the intramuscular septum exposing the hardware. The proximal portion of the gluteus satinder tendon was released. Piriformis, external rotators and capsule were taken down as a single layer as an inverted L shaped capsulotomy. Hip was dislocated. The articular surface had delaminated from the underlying subchondral bone secondary to osteonecrosis. The hardware was then removed without difficulty. Templated femoral neck cut was made. Acetabulum was prepared by sequentially reaming to 49 mm. A 50 mm Continuum acetabular shell was press-fit with excellent stability. 1 6.5 millimeter screw was placed with an excellent bite. 32 mm elevated longevity liner was placed with a dome hole plug. Femur was prepared sequentially with the box osteotome, canal finder and sequential broaches to 13. Components were trialed. A size 13 Versys fiber metal tapered stem was press-fit. A 32+3.5 mm head was placed. The component was stable posteriorly and anteriorly. Capsule was repaired with #5 Tycron. Deep fascia was closed with 0 Vicryl figure-of- eight suture. Subcutaneous tissue was closed deep with a 2-0 Vicryl runner and superficially with 3-0 interrupted buried sutures. Skin was closed with atif. Triple antibiotic ointment and a sterile occlusive dressing was applied. Surgeon / Physician: Christopher Au Jr. Discharge Plan - Discharge Medications No Action OLANZapine [Olanzapine Odt] 10 mg SL BEDTIME Gabapentin 800 mg PO QID clonazePAM [Clonazepam] 2 mg PO BEDTIME Acyclovir [Acyclovir Cap/Tab] 400 mg PO BID Quetiapine Fumarate 800 mg PO BEDTIME Temazepam 30 mg PO BEDTIME oxyCODONE/ACETAMINOPHEN 5-325 [Percocet 5-325] 1 - 2 tablet PO Q6H PRN PRN Reason: Pain Moderate To Severe (4-10) - Follow Up or Referral - Forms/Instructions
--- NOTE | 2017-01-01 11:26 | Anesthesia Post-Op ---
Anesthesia Post OP - Post Ansesthetic Evaluation Patient seen in post op: Yes Resp: within normal limits CV: within normal limits Mental: within normal limits Temp: within normal limits Ysob-Df-Yymdxjbzf: within normal limits Nausea and Vomiting: within normal limits Pain: within normal limits
[2017-01-01] MEDS: oxyCODONE/ACETAMINOPHEN 5-325 MG TABLET PO PRN ×2 (11:44→19:08)
[2017-01-01] MEDS: ACETAMINOPHEN 500 MG TABLET PO SCH ×3 (11:44→22:45)
--- NOTE | 2017-01-01 14:07 | Orthopedic Progress Note ---
Orthopedics - Subjective Interval history: Erika Brand is complaining of pain. She became very sedated with just .5mg Dilaudid. She is mildly sedated. She follows command. Her dressing is clean, dry and intact. She can flex and extend her toes and ankle. Sensation is intact. Plan: We will stop the Dilaudid and switch to morphine. Otherwise continue per protocol. Exam - Constitutional Vitals: Period Temp Pulse Resp BP Sys/Soto Pulse Ox Last 24 Hr 96.8 F-97.7 F 76-81 16-22 103-127/68-84 93-98
[2017-01-01] MEDS: MORPHINE 2 MG/1 ML SYRINGE IV PRN ×3 (14:34→20:30)
[2017-01-01] MEDS: CLINDAMYCIN INJ 900 MG in PREMIX 1 EACH IV SCH ×2 (14:34→22:46)
--- NOTE | 2017-01-01 15:24 | Pulmonology Progress Note ---
Pulmonary - PN: Subj Interval history: The patient is a 51-year-old white lady that came in today and had a right hip replacement. She was having considerable arthritis in her hip. She has been a smoker and may have just some mild COPD. She did well with anesthesia today and is not having any breathing problems. She says she is very sore but did get up already. She seems to be doing relatively well at present Exam (Progress Note) - Constitutional Vitals: Period Temp Pulse Resp BP Sys/Soto Pulse Ox Last 24 Hr 96.8 F-97.7 F 76-94 16-22 103-146/68-90 93-100 General appearance: no acute distress (The patient is resting fairly well now.) , over weight - Head Head exam: Present: normal inspection, normocephalic - Eye Eye exam: Present: EOMI. Absent: scleral icterus Pupils: Present: RANJANA - ENT ENT exam: Present: normal exam - Neck Neck exam: Absent: lymphadenopathy, thyromegaly - Respiratory Respiratory exam: Present: clear to auscultation bilaterally. Absent: wheezes - Cardiovascular Cardiovascular exam: Present: regular rate and rhythm. Absent: gallop, systolic murmur - GI/Abdominal GI/Abdominal exam: Present: normal bowel sounds, soft. Absent: distended, organomegaly, tenderness - Extremities Exam Extremities exam: Present: other (Right leg is bandaged). Absent: calf tenderness, edema - Neurological Exam Neurological exam: Present: alert, oriented X3, CN II-XII intact - Psychiatric Psychiatric exam: Present: normal affect, normal mood - Skin Skin exam: Present: warm, dry Assessment and Plan (1) Status post total hip replacement, right Status: Acute Assessment and plan: The patient had had a previous hip fracture and had a lot of pain so now she comes in for hip replacement. She is doing well so far postop. Current Visit: Yes (2) Intertrochanteric fracture of right femur Status: Acute Current Visit: No Qualifiers: Encounter type: initial encounter Fracture type: closed Qualified Code(s) : S72.141A - Displaced intertrochanteric fracture of right femur, initial encounter for closed fracture (3) Manic depressive illness Status: Chronic Assessment and plan: She is stable and continue with her medications. Current Visit: No (4) Tobacco abuse Status: Acute Assessment and plan: She certainly needs to quit smoking. Current Visit: No (5) COPD (chronic obstructive pulmonary disease) Status: Acute Assessment and plan: She will continue with bronchodilator therapy Current Visit: No
[2017-01-01] MEDS: ALBUTEROL/IPRATROPIUM 3 ML NEB RESP TX SCH (20:36)
[2017-01-01] MEDS: TEMAZEPAM 15 MG CAPSULE PO SCH (20:37)
[2017-01-01] MEDS: clonazePAM 0.5 MG TABLET PO SCH (20:37)
[2017-01-01] MEDS ORDERED: OLANZAPINE 10 MG SL SCH (21:00)
[2017-01-02] MEDS: MORPHINE 2 MG/1 ML SYRINGE IV PRN ×6 (00:12→20:55)
[2017-01-02] MEDS: KETOROLAC 30 MG/1 ML VIAL IV SCH (00:46)
[2017-01-02] MEDS: ALBUTEROL/IPRATROPIUM 3 ML NEB RESP TX SCH ×4 (01:13→19:50)
[2017-01-02] MEDS: oxyCODONE/ACETAMINOPHEN 5-325 MG TABLET PO PRN ×3 (04:53→10:17)
[2017-01-02] MEDS: ACETAMINOPHEN 500 MG TABLET PO SCH (05:02)
[2017-01-02 05:18] LABS: Basophils % 0.3 % (0.0-0.8); Eosinophils # 0.2 10*3/uL (0.0-0.87); Eosinophils % 4.1 % (0.00-10.9); Hematocrit 34.1 VOL% (35.7-47.0); Hemoglobin 11.2 GM/DL (12.0-16.0); Immature Granulocytes % 0.5 %; Immature Granulocytes Absolute 0.03 #; Lymphocytes # 1.4 10*3/uL (1.4-4.0); Lymphocytes % 23.6 % (21.3-54.2); Mean Corpuscular HGB Conc 32.8 GM/DL (32-36); Mean Corpuscular Hemoglobin 31 PG (27-34); Mean Corpuscular Volume 93.9 FL (87-102); Mean Platelet Volume 9.1 FL (9.6-12.0); Monocytes # 0.5 10*3/uL (0.11-0.8); Monocytes % 7.8 % (1.7-12.7); Neutrophils # 3.8 10*3/uL (1.4-7.4); Neutrophils % 63.7 % (38.7-73.9); Platelet Count 291 T/CUMM (130-400); Red Blood Count 3.63 MC/CUMM (3.8-5.5); Red Cell Distribution Width 15.1 % (9.3-17.3); White Blood Count 5.9 T/CUMM (4-12)
[2017-01-02 05:56] LABS: Calcium 8.2 MG/DL (8.5-10.1); Osmolality,Calculated 280.3 MOS/KG (273-304); Potassium 4.1 MMOL/L (3.5-5.1)
[2017-01-02] MEDS: FONDAPARINUX 2.5 MG/0.5 ML SYRINGE SUBCUT SCH (06:25)
[2017-01-02] MEDS: LACTATED RINGERS 1,000 ML IV SCH ×2 (07:10→13:45)
--- NOTE | 2017-01-02 07:28 | Orthopedic Progress Note ---
Orthopedics - Subjective Interval history: Ms Brand is more comfortable this morning. Dressing clean, dry and intact. Right lower extremities neurovascularly unchanged. Plan: Mobilize with physical therapy. Stop IV fluids and [place]. Plan swing bed placement. Exam - Constitutional Vitals: Period Temp Pulse Resp BP Sys/Soto Pulse Ox Last 24 Hr 96.8 F-100 F 70-107 16-22 82-149/48-94 93-100 Results - Labs CBC & BMP: 01/02/17 04:46 01/02/17 04:46
[2017-01-02] MEDS: DOCUSATE SODIUM 100 MG CAPSULE PO SCH ×2 (08:10→21:56)
[2017-01-02] MEDS: ACYCLOVIR 200 MG CAPSULE PO SCH ×2 (08:10→21:59)
[2017-01-02] MEDS: GABAPENTIN 400 MG CAPSULE PO SCH ×4 (08:10→21:58)
--- NOTE | 2017-01-02 09:00 | Pulmonology Progress Note ---
Pulmonary - PN: Subj Interval history: The patient is a 51-year-old white lady that came in and had a right hip replacement. She was having considerable arthritis in her hip. She has been a smoker and may have just some mild COPD. She did well with surgery and had a fairly good night. She still has considerable hip pain but is starting to move around better. She is not having any trouble with her breathing. She continues to do well. Exam (Progress Note) - Constitutional Vitals: Period Temp Pulse Resp BP Sys/Soto Pulse Ox Last 24 Hr 96.8 F-100 F 70-107 16-22 82-149/48-94 91-100 Exam: General appearance: no acute distress (The patient is alert and sitting up and comfortable.), over weight - Head Head exam: Present: normal inspection, normocephalic - Eye Eye exam: Present: EOMI. Absent: scleral icterus Pupils: Present: RANJANA - ENT ENT exam: Present: normal exam - Neck Neck exam: Absent: lymphadenopathy, thyromegaly - Respiratory Respiratory exam: Present: clear to auscultation bilaterally. She has good air movement with no wheezing or rales. - Cardiovascular Cardiovascular exam: Present: regular rate and rhythm. Absent: gallop, systolic murmur - GI/Abdominal GI/Abdominal exam: Present: normal bowel sounds, soft. Absent: distended, organomegaly, tenderness - Extremities Exam Extremities exam: Present: other (Right leg is bandaged). Absent: calf tenderness, edema - Neurological Exam Neurological exam: Present: alert, oriented X3, CN II-XII intact - Psychiatric Psychiatric exam: Present: normal affect, normal mood - Skin Skin exam: Present: warm, dry Results - Labs CBC & BMP: 01/02/17 04:46 01/02/17 04:46 Assessment and Plan (1) Status post total hip replacement, right Status: Acute Assessment and plan: The patient had had a previous hip fracture and had a lot of pain so now she comes in for hip replacement. She is doing well although she is still a little uncomfortable. She will have more physical therapy today. Current Visit: Yes (2) Intertrochanteric fracture of right femur Status: Acute Current Visit: No Qualifiers: Encounter type: initial encounter Fracture type: closed Qualified Code(s) : S72.141A - Displaced intertrochanteric fracture of right femur, initial encounter for closed fracture (3) Manic depressive illness Status: Chronic Assessment and plan: She is stable and continue with her medications. Current Visit: No (4) Tobacco abuse Status: Acute Assessment and plan: She certainly needs to quit smoking. Her breathing is stable so far. Current Visit: No (5) COPD (chronic obstructive pulmonary disease) Status: Acute Assessment and plan: She will continue with bronchodilator therapy. She is not having any problems at present. Current Visit: No Specialty Discharge - Follow Up or Referrals Follow up with: Christopher Au Jr., MD [Physician] -
[2017-01-02] MEDS: CELECOXIB 200 MG CAPSULE PO SCH (13:10)
[2017-01-02] MEDS: QUEtiapine 100 MG TABLET PO SCH (21:57)
[2017-01-02] MEDS: TEMAZEPAM 15 MG CAPSULE PO SCH (21:58)
[2017-01-02] MEDS: clonazePAM 0.5 MG TABLET PO SCH (21:58)
[2017-01-03] MEDS: LACTATED RINGERS 1,000 ML IV SCH ×2 (00:05→11:36)
[2017-01-03] MEDS: MORPHINE 2 MG/1 ML SYRINGE IV PRN ×8 (00:33→22:13)
[2017-01-03] MEDS: ALBUTEROL/IPRATROPIUM 3 ML NEB RESP TX SCH ×4 (00:50→19:12)
[2017-01-03] MEDS: FONDAPARINUX 2.5 MG/0.5 ML SYRINGE SUBCUT SCH (06:35)
[2017-01-03 06:40] LABS: Basophils % 0.4 % (0.0-0.8); Eosinophils # 0.4 10*3/uL (0.0-0.87); Eosinophils % 5.1 % (0.00-10.9); Hematocrit 34.3 VOL% (35.7-47.0); Hemoglobin 11.2 GM/DL (12.0-16.0); Immature Granulocytes % 0.8 %; Immature Granulocytes Absolute 0.06 #; Lymphocytes # 1.9 10*3/uL (1.4-4.0); Lymphocytes % 25.6 % (21.3-54.2); Mean Corpuscular HGB Conc 32.7 GM/DL (32-36); Mean Corpuscular Hemoglobin 31 PG (27-34); Mean Corpuscular Volume 94.8 FL (87-102); Mean Platelet Volume 9.5 FL (9.6-12.0); Monocytes # 0.7 10*3/uL (0.11-0.8); Monocytes % 9.6 % (1.7-12.7); Neutrophils # 4.3 10*3/uL (1.4-7.4); Neutrophils % 58.5 % (38.7-73.9); Platelet Count 290 T/CUMM (130-400); Red Blood Count 3.62 MC/CUMM (3.8-5.5); Red Cell Distribution Width 15.1 % (9.3-17.3); White Blood Count 7.4 T/CUMM (4-12)
--- NOTE | 2017-01-03 07:14 | Orthopedic Progress Note ---
Orthopedics - Subjective Interval history: Feeling better today. She was able to walk in the lopez yesterday. Dressing dry. Left lower extremity neurovascularly unchanged. Plan: Continue with physical therapy. Plan swing bed placement. Exam - Constitutional Vitals: Period Temp Pulse Resp BP Sys/Soto Pulse Ox Last 24 Hr 97.1 F-99.4 F 96-125 18-20 98-134/60-104 94-99 Results - Labs CBC & BMP: 01/03/17 04:51 01/02/17 04:46 Specialty Discharge - Follow Up or Referrals Follow up with: Christopher Au Jr., MD [Physician] -
--- NOTE | 2017-01-03 08:26 | Pulmonology Progress Note ---
Pulmonary - PN: Subj Interval history: The patient is a 51-year-old white lady that came in and had a right hip replacement. She was having considerable arthritis in her hip. She has been a smoker and may have just some mild COPD. She did well with physical therapy yesterday and says she sat up okay. She did get tired easily and says she had a restless night. Overall she is doing a little better. Exam (Progress Note) - Constitutional Vitals: Period Temp Pulse Resp BP Sys/Soto Pulse Ox Last 24 Hr 97.4 F-99.4 F 96-129 18-20 98-134/60-104 92-99 Exam: General appearance: no acute distress (The patient is alert and sitting up and ate well. She is doing fairly well with physical therapy.) - Head Head exam: Present: normal inspection, normocephalic - Eye Eye exam: Present: EOMI. Absent: scleral icterus Pupils: Present: RANJANA - ENT ENT exam: Present: normal exam - Neck Neck exam: Absent: lymphadenopathy, thyromegaly - Respiratory Respiratory exam: Present: clear to auscultation bilaterally. She has good air movement with no wheezing or rales. - Cardiovascular Cardiovascular exam: Present: regular rate and rhythm. Absent: gallop, systolic murmur - GI/Abdominal GI/Abdominal exam: Present: normal bowel sounds, soft. Absent: distended, organomegaly, tenderness - Extremities Exam Extremities exam: Present: other (Right leg is bandaged). She has no signs of phlebitis. - Neurological Exam Neurological exam: Present: alert, oriented X3, CN II-XII intact - Psychiatric Psychiatric exam: Present: normal affect, normal mood - Skin Skin exam: Present: warm, dry Results - Labs CBC & BMP: 01/03/17 04:51 01/02/17 04:46 Assessment and Plan (1) Status post total hip replacement, right Status: Acute Assessment and plan: The patient had had a previous hip fracture and had a lot of pain so now she comes in for hip replacement. She is doing well and has been doing more physical therapy. She is not having any new problems. Current Visit: Yes (2) Intertrochanteric fracture of right femur Status: Acute Assessment and plan: She came in for hip replacement is doing fairly well. Current Visit: No Qualifiers: Encounter type: initial encounter Fracture type: closed Qualified Code(s) : S72.141A - Displaced intertrochanteric fracture of right femur, initial encounter for closed fracture (3) Manic depressive illness Status: Chronic Assessment and plan: She does get emotional and will continue with her medications. Current Visit: No (4) Tobacco abuse Status: Acute Assessment and plan: She certainly needs to quit smoking. Her breathing is stable so far. Current Visit: No (5) COPD (chronic obstructive pulmonary disease) Status: Acute Assessment and plan: She will continue with bronchodilator therapy. She is not having any problems at present. She seems to be breathing comfortably. Current Visit: No Specialty Discharge - Follow Up or Referrals Follow up with: Christopher Au Jr., MD [Physician] -
[2017-01-03] MEDS: GABAPENTIN 400 MG CAPSULE PO SCH ×4 (08:32→20:47)
[2017-01-03] MEDS: DOCUSATE SODIUM 100 MG CAPSULE PO SCH ×2 (08:32→20:48)
[2017-01-03] MEDS: CELECOXIB 200 MG CAPSULE PO SCH (09:23)
[2017-01-03] MEDS: ACYCLOVIR 200 MG CAPSULE PO SCH ×2 (09:23→20:49)
[2017-01-03] MEDS: clonazePAM 0.5 MG TABLET PO SCH (20:48)
[2017-01-03] MEDS: QUEtiapine 100 MG TABLET PO SCH (20:49)
[2017-01-03] MEDS: TEMAZEPAM 15 MG CAPSULE PO SCH (20:50)
[2017-01-03] MEDS: oxyCODONE/ACETAMINOPHEN 5-325 MG TABLET PO PRN (20:52)
[2017-01-04] MEDS: ALBUTEROL/IPRATROPIUM 3 ML NEB RESP TX SCH ×2 (01:31→07:27)
[2017-01-04] MEDS: MORPHINE 2 MG/1 ML SYRINGE IV PRN ×2 (04:33→09:08)
[2017-01-04 04:46] LABS: Basophils % 0.5 % (0.0-0.8); Eosinophils # 0.4 10*3/uL (0.0-0.87); Eosinophils % 5.9 % (0.00-10.9); Hematocrit 33.2 VOL% (35.7-47.0); Immature Granulocytes % 1.6 %; Immature Granulocytes Absolute 0.12 #; Lymphocytes # 2.4 10*3/uL (1.4-4.0); Lymphocytes % 31.4 % (21.3-54.2); Mean Corpuscular HGB Conc 33.1 GM/DL (32-36); Mean Corpuscular Hemoglobin 31 PG (27-34); Mean Corpuscular Volume 94.1 FL (87-102); Mean Platelet Volume 9.4 FL (9.6-12.0); Monocytes # 0.7 10*3/uL (0.11-0.8); Monocytes % 9.1 % (1.7-12.7); Neutrophils # 3.9 10*3/uL (1.4-7.4); Neutrophils % 51.5 % (38.7-73.9); Platelet Count 312 T/CUMM (130-400); Red Blood Count 3.53 MC/CUMM (3.8-5.5); Red Cell Distribution Width 15.3 % (9.3-17.3); White Blood Count 7.5 T/CUMM (4-12)
[2017-01-04] MEDS: FONDAPARINUX 2.5 MG/0.5 ML SYRINGE SUBCUT SCH (05:34)
--- NOTE | 2017-01-04 07:55 | Discharge Summary ---
Hospital Course - Hospital Course Hospital Course: Erika Brand was admitted after undergoing conversion to a right total hip arthroplasty for avascular necrosis and a history of a peritrochanteric hip fracture. She received perioperative DVT and antimicrobial prophylaxis. She received physical therapy. She was discharged to [facility] in stable condition. Her dressing is clean, dry and intact. Right lower extremities neurovascularly unchanged. Specialty Discharge - Follow Up or Referrals Follow up with: Christopher Au Jr., MD [Physician] - Discharge Plan - Discharge Data Disposition: Disch/Xfer to [facility] Condition at Discharge: Stable Discharge Diet: advance to your usual diet Hygiene: may shower Weight Bearing at Discharge: weight bear as tolerated Driving: not until seen by doctor - Discharge Medications New Celecoxib [Celebrex] 200 mg PO DAILY capsule oxyCODONE IR [Roxicodone] 5 mg PO Q4H PRN tablet PRN Reason: Pain Mild (1-3) oxyCODONE IR [Roxicodone] 10 mg PO Q4H PRN tablet PRN Reason: Pain Moderate (4-7) oxyCODONE/ACETAMINOPHEN 5-325 [Percocet 5-325] 1 tablet PO Q4H PRN tablet PRN Reason: Pain Moderate (4-7) oxyCODONE/ACETAMINOPHEN 5-325 [Percocet 5-325] 2 tablet PO Q4H PRN tablet PRN Reason: Moderate Pain unrelieved by 1 Fondaparinux [Arixtra] 2.5 mg SUBCUT Q24H syringe Continue OLANZapine [Olanzapine Odt] 10 mg SL BEDTIME Gabapentin 800 mg PO QID clonazePAM [Clonazepam] 2 mg PO BID PRN PRN Reason: Anxiety Acyclovir [Acyclovir Cap/Tab] 400 mg PO BID Promethazine HCl 50 mg PO DAILY Quetiapine Fumarate 400 mg PO BID Temazepam 30 mg PO BEDTIME PRN PRN Reason: Sleep Sertraline [Zoloft] 150 mg PO DAILY Discontinued Oxycodone HCl/Acetaminophen [Oxycodone-Acetaminophen 10-325] 1 each PO TID PRN PRN Reason: Pain - Follow Up or Referral Follow Up: Christopher Au Jr., MD [Physician] - - Forms/Instructions Additional Discharge Instructions: Posterior hip precautions for 3 months. Daily dry dressing changes. Arrange for walker and bedside commode for home use. Wear BARBARA hose for 1 month. Follow-up appointment in 4 weeks. Discontinue atif and Steri-Strip wound on January 12, 2017. Prescription for Percocet 10 was written. Stop Arixtra and Celebrex when discharged from [facility] Exam - Constitutional Vitals: Period Temp Pulse Resp BP Sys/Soto Pulse Ox Last 24 Hr 96.3 F-98.2 F 94-124 18-20 105-114/63-73 90-99 Discharge Results Labs on day of discharge: Labs from last 24 hours 01/04/17 04:10 WBC 7.5 RBC 3.53 L Hgb 11.0 L Hct 33.2 L MCV 94.1 MCH 31 MCHC 33.1 RDW 15.3 Plt Count 312 MPV 9.4 L Neut % (Auto) 51.5 Lymph % (Auto) 31.4 [place] % (Auto) 9.1 Eos % (Auto) 5.9 Baso % (Auto) 0.5 Neut # (Auto) 3.9 Lymph # (Auto) 2.4 [place] # (Auto) 0.7 Eos # (Auto) 0.4 Baso # (Auto) 0.0 Immature Gran % 1.6 Nucleated RBC % 0.0 Immature Gran # 0.12 Nucleated RBCs # 0.00 Immature Plt Fraction 0.0 DS: Provider Date of admission: 01/01/17 07:22 Primary care physician: Joey Vigil Attending physician on admission: Christopher Au Jr., Consults: 01/01/17 07:22 Consult to Case Mgmt/Social Srvs [CONS] Routine Reason for Case Mgmt/Social Srvs: Rehab Home Health Equipment Consult Comment: Bedside Commode, CPM, Walker Consult to Occupational Therapy [CONS] Routine Reason for Occupational Therapy: Evaluate and Treat Consult Comment: ADL's Consult to Physical Therapy [CONS] Routine Reason for Physical Therapy: Evaluate and Treat Gait Training Start Therapy: Today Consult Comment: wbat, hip precautions 01/01/17 10:30 Consult to Physician [CONS] Routine Comment: Consulting Provider: Alberto Pritchard Consulting Provider Notified: Yes When should Consulting Provider be notified: Now Person Notified: remigio petty Date Notified: 01/01/17 Time Notified: 10:33 Discharging clinician: Christopher Au Jr., Expected date of discharge: 01/04/17
[2017-01-04] MEDS: ACYCLOVIR 200 MG CAPSULE PO SCH (09:08)
[2017-01-04] MEDS: GABAPENTIN 400 MG CAPSULE PO SCH ×2 (09:08→13:20)
[2017-01-04] MEDS: DOCUSATE SODIUM 100 MG CAPSULE PO SCH (09:08)
[2017-01-04] MEDS: CELECOXIB 200 MG CAPSULE PO SCH (09:08)
--- NOTE | 2017-01-04 09:28 | Pulmonology Progress Note ---
Pulmonary - PN: Subj Interval history: The patient is a 51-year-old white lady that came in and had a right hip replacement. She was having considerable arthritis in her hip. She has been a smoker and may have just some mild COPD. She did well yesterday and is ambulating in the lopez. She says her hip is feeling better. She is not having any breathing problems. She is going to rehab today. Exam (Progress Note) - Constitutional Vitals: Period Temp Pulse Resp BP Sys/Soto Pulse Ox Last 24 Hr 96.3 F-98.2 F 94-124 17-20 105-114/63-73 90-99 Exam: General appearance: no acute distress (The patient is alert and sitting up and ate well. She is doing fairly well with physical therapy. Overall she looks like she feels better.) - Head Head exam: Present: normal inspection, normocephalic - Eye Eye exam: Present: EOMI. Absent: scleral icterus Pupils: Present: RANJANA - ENT ENT exam: Present: normal exam - Neck Neck exam: Absent: lymphadenopathy, thyromegaly - Respiratory Respiratory exam: Present: clear to auscultation bilaterally. She has good air movement with no wheezing or rales. - Cardiovascular Cardiovascular exam: Present: regular rate and rhythm. Absent: gallop, systolic murmur - GI/Abdominal GI/Abdominal exam: Present: normal bowel sounds, soft. Absent: distended, organomegaly, tenderness - Extremities Exam Extremities exam: Present: other (Right leg is bandaged). She has no signs of phlebitis. She is not swelling very badly at all. - Neurological Exam Neurological exam: Present: alert, oriented X3, CN II-XII intact - Psychiatric Psychiatric exam: Present: normal affect, normal mood - Skin Skin exam: Present: warm, dry Results - Labs CBC & BMP: 01/04/17 04:10 01/02/17 04:46 Assessment and Plan (1) Status post total hip replacement, right Status: Acute Assessment and plan: The patient had had a previous hip fracture and had a lot of pain so now she comes in for hip replacement. She is doing well and has been doing more physical therapy. She is not having any new problems. She is going to rehab today. Current Visit: Yes (2) Intertrochanteric fracture of right femur Status: Acute Assessment and plan: She came in for hip replacement is doing fairly well. She is ambulating and feels better. Current Visit: No Qualifiers: Encounter type: initial encounter Fracture type: closed Qualified Code(s) : S72.141A - Displaced intertrochanteric fracture of right femur, initial encounter for closed fracture (3) Manic depressive illness Status: Chronic Assessment and plan: She does get emotional and will continue with her medications. Current Visit: No (4) Tobacco abuse Status: Acute Assessment and plan: She certainly needs to quit smoking. Her breathing is stable so far. Current Visit: No (5) COPD (chronic obstructive pulmonary disease) Status: Acute Assessment and plan: She will continue with bronchodilator therapy. She is not having any problems at present. She seems to be breathing comfortably. Overall she is medically stable. Current Visit: No Specialty Discharge - Follow Up or Referrals Follow up with: Christopher Au Jr., MD [Physician] - 02/01/17 12:40 pm
[2017-01-04] MEDS ORDERED: BISACODYL 10 MG SUPP RECTAL PRN (11:11)
[2017-01-04 11:51] VITALS: BP 104/76
[2017-01-04] MEDS: oxyCODONE/ACETAMINOPHEN 5-325 MG TABLET PO PRN (13:20)
--- NOTE | 2017-01-04 19:17 | Pathology Report from [facility] ---
[facility] ACCESSION # : [id number] PATIENT NAME : Jonny Brand ORDERING DR : JANICE OWUSU MD CLINICAL HX: Retained hardware RT femur, RT hip osteoarthritis POST-OP DX: Same SPECIMEN INFO: #1 Retained hardware RT femur #2 RT hip bone & tissue GROSS DESCRIPTION: Received in formalin in two parts labeled:#1 JONNY BRAND consists of hardware, submitted for gross exam only.#2 JONNY BRAND #2 consists of femoral head measuring 4.5 x 4.5 x 3.9 cm. The articular surfaces are focally degenerative with no subchondral eburnation seen. The surgical margin is smooth with no softening appreciated. Received separately in the specimen container are multiple fragments of hemorrhagic bone and soft tissue measuring 5.5 x 3.0 cm in aggregate. Flat Lock Machine Operator tissue is submitted in one cassette following decalcification. DIAGNOSIS FOR JONNY BRAND: #1 Orthopedic hardware, gross only.#2 RIGHT HIP , TOTAL REPLACEMENT: Fragments of bone and cartilage with reactive/ degenerative changes, consistent with osteoarthritis. CD138 immunostain negative for increased plasma cells. COLLECTED DATE: 01/01/2017 [facility] REPORT DATE: 01/04/2017 ELECTRONICALLY SIGNED BY: Cyn Simon M.D. 01/04/2017 - 14:40:10 [facility]
== END 2017-01-04 14:05 | DRG 301 ==
LOC: N.OR 05:48 → N.SDSINP 05:49 → N.3E 09:38
PROVIDERS: ADMIT Orthopaedic Surgery; ATTEND Orthopaedic Surgery

== ENCOUNTER 2017-04-17 05:23 | Inpatient (IN) ==
[2017-04-10 13:39] LABS: Basophils # 0.1 10*3/uL (0.0-0.2); Basophils % 1.1 % (0.0-0.8); Eosinophils # 0.4 10*3/uL (0.0-0.87); Eosinophils % 5.8 % (0.00-10.9); Hematocrit 42.6 VOL% (35.7-47.0); Hemoglobin 14.5 GM/DL (12.0-16.0); Immature Granulocytes % 0.2 %; Immature Granulocytes Absolute 0.01 #; Lymphocytes # 2.7 10*3/uL (1.4-4.0); Mean Corpuscular Hemoglobin 32 PG (27-34); Mean Corpuscular Volume 92.4 FL (87-102); Mean Platelet Volume 9.2 FL (9.6-12.0); Monocytes # 0.4 10*3/uL (0.11-0.8); Monocytes % 6.1 % (1.7-12.7); Neutrophils # 2.9 10*3/uL (1.4-7.4); Neutrophils % 44.8 % (38.7-73.9); Platelet Count 320 T/CUMM (130-400); Red Blood Count 4.61 MC/CUMM (3.8-5.5); Red Cell Distribution Width 13.5 % (9.3-17.3); White Blood Count 6.4 T/CUMM (4-12)
[2017-04-10 13:49] LABS: INR 0.9; Partial Thromboplastin Time 28.1 SECS (0-40)
[2017-04-10 14:18] LABS: Alanine Aminotransferase 38 U/L (13-56); Albumin 3.8 G/DL (3.4-5.0); Alkaline Phosphatase 183 U/L (45-117); Aspartate Amino Transferase 23 U/L (0-37); Bilirubin,Total < 0.39 MG/DL (0.2-1.0); Blood Urea Nitrogen 9 MG/DL (7-18); Calcium 8.7 MG/DL (8.5-10.1); Glucose 90 MG/DL (74-106); Osmolality,Calculated 277.4 MOS/KG (273-304); Potassium 4.4 MMOL/L (3.5-5.1); Sodium 140 MMOL/L (136-145); Total Protein 7.8 G/DL (6.4-8.3)
[2017-04-10 14:21] LABS: Apearance,Urine CLEAR (Clear); Bacteria,Urine Occasional /HPF (Few); Bilirubin,Urine Negative (Negative); Blood, Urine Small mg/dL (Negative); Glucose,Urine (UA) Negative (Negative); Ketones,Urine Negative (Negative); Mucus,Urine Occasional /LPF (Occasional); Nitrite,Urine Negative (Negative); Protein,Urine Negative; RBC,Urine 6 /HPF (0-4); Squamous Epithelial Cell,Urine Occasional /HPF (0-10); Urine Color Yellow (Yellow); Urine Specific Gravity 1.012 (1.001-1.035); Urine Urobilinogen < 2.0 EU/DL (0.2-1.0); WBC,Urine 1 /HPF (0-6)
[2017-04-17] MEDS ORDERED: CLINDAMYCIN INJ 900 MG in PREMIX 1 EACH IV ONE (06:00)
[2017-04-17] MEDS ORDERED: VANCOMYCIN INJ 1,000 MG in SODIUM CHLORIDE 0.9% 250 ML IV ONE ×2 (06:00→15:27)
[2017-04-17] MEDS ORDERED: VANCOMYCIN 1,000 MG VIAL ONE (06:11)
[2017-04-17] MEDS ORDERED: clonazePAM 0.5 MG TABLET PO PRN (07:24)
[2017-04-17] MEDS ORDERED: MAGNESIUM HYDROXIDE SUSP 30 ML UDCUP PO PRN (07:26)
[2017-04-17] MEDS ORDERED: ONDANSETRON 4 MG/2 ML VIAL IV PRN ×2 (07:26→09:16)
[2017-04-17] MEDS ORDERED: oxyCODONE IR 5 MG TABLET PO PRN (07:26)
[2017-04-17] MEDS ORDERED: HYDROmorphone 2 MG/1 ML VIAL IV PRN (07:26)
[2017-04-17] MEDS ORDERED: diphenhydrAMINE CAP 25 MG CAPSULE PO PRN (07:26)
[2017-04-17] MEDS ORDERED: LACTATED RINGERS 1,000 ML IV SCH (07:30)
[2017-04-17] MEDS ORDERED: BACITRACIN OINT 0.9 GM PACK TOP ONE (08:04)
[2017-04-17] MEDS ORDERED: TRANEXAMIC ACID 1,000 MG/10 ML VIAL IV ONE (08:04)
[2017-04-17] MEDS ORDERED: PROPOFOL 200 MG/20 ML VIAL IV ONE (09:22)
[2017-04-17 09:23] LABS: Apearance,Urine CLEAR (Clear); Bilirubin,Urine Negative (Negative); Blood, Urine Negative (Negative); Glucose,Urine (UA) Negative (Negative); Ketones,Urine Negative (Negative); Mucus,Urine Occasional /LPF (Occasional); Nitrite,Urine Negative (Negative); Protein,Urine Negative; RBC,Urine 2 /HPF (0-4); Squamous Epithelial Cell,Urine Occasional /HPF (0-10); Urine Color Yellow (Yellow); Urine Specific Gravity 1.008 (1.001-1.035); Urine Urobilinogen < 2.0 EU/DL (0.2-1.0); WBC,Urine <1 /HPF (0-6)
[2017-04-17] MEDS ORDERED: MIDAZOLAM 2 MG/2 ML VIAL ONE (09:23)
[2017-04-17] MEDS ORDERED: SEVOFLURANE 1 UNIT/15 MINUTE INH ONE (09:23)
[2017-04-17] MEDS ORDERED: DEXAMETHASONE 10 MG/1 ML VIAL ONE (09:23)
[2017-04-17] MEDS ORDERED: fentaNYL 100 MCG/2 ML VIAL ONE (09:23)
[2017-04-17] MEDS ORDERED: ACETAMINOPHEN 1,000 MG/100 ML VIAL IV ONE (09:24)
[2017-04-17] MEDS ORDERED: NEOSTIGMINE 10 MG/10 ML VIAL ONE (09:24)
[2017-04-17] MEDS ORDERED: LACTATED RINGERS 1,000 ML IV ONE ×2 (09:24→13:54)
[2017-04-17] MEDS ORDERED: GLYCOPYRROLATE 0.4 MG/2 ML VIAL ONE (09:24)
[2017-04-17] MEDS ORDERED: ROCURONIUM 100 MG/10 ML VIAL IV ONE (09:24)
[2017-04-17] MEDS ORDERED: KETOROLAC 30 MG/1 ML VIAL ONE (09:24)
[2017-04-17] MEDS ORDERED: SODIUM CHLORIDE 0.9% 100 ML IV ONE (09:24)
[2017-04-17] MEDS: HYDROmorphone 2 MG/1 ML VIAL IV PRN ×7 (09:28→20:35)
[2017-04-17] MEDS ORDERED: INFLUENZA VIRUS VACCINE 0.5 ML SYRINGE IM ONE (10:46)
[2017-04-17] MEDS: LACTATED RINGERS 1,000 ML IV SCH ×2 (10:53→18:41)
[2017-04-17] MEDS: KETOROLAC 30 MG/1 ML VIAL IV SCH ×3 (10:53→20:36)
[2017-04-17] MEDS: DOCUSATE SODIUM 100 MG CAPSULE PO SCH ×2 (10:54→20:41)
[2017-04-17] MEDS: OXYBUTYNIN 5 MG TABLET PO SCH ×2 (10:54→20:41)
[2017-04-17] MEDS: SERTRALINE 100 MG TABLET PO SCH (10:54)
[2017-04-17] MEDS ORDERED: PNEUMOCOCCAL VACCINE (23 VALENT) 0.5 ML VIAL IM ONE (10:57)
[2017-04-17] MEDS ORDERED: TEMAZEPAM 15 MG CAPSULE PO PRN (11:00)
[2017-04-17] MEDS: CLINDAMYCIN INJ 900 MG in PREMIX 1 EACH IV SCH ×2 (12:13→20:37)
[2017-04-17] MEDS: GABAPENTIN 400 MG CAPSULE PO SCH ×3 (12:57→20:41)
[2017-04-17] MEDS: PROMETHAZINE 25 MG TABLET PO SCH (20:40)
[2017-04-17] MEDS: QUEtiapine 100 MG TABLET PO SCH (20:40)
[2017-04-17] MEDS: OLANZapine 5 MG TABLET PO SCH (20:40)
[2017-04-18] MEDS: HYDROmorphone 2 MG/1 ML VIAL IV PRN ×4 (00:47→22:49)
[2017-04-18] MEDS: FONDAPARINUX 2.5 MG/0.5 ML SYRINGE SUBCUT SCH (00:47)
[2017-04-18] MEDS: KETOROLAC 30 MG/1 ML VIAL IV SCH (00:47)
[2017-04-18] MEDS: LACTATED RINGERS 1,000 ML IV SCH (05:03)
[2017-04-18 06:35] LABS: Basophils % 0.2 % (0.0-0.8); Eosinophils % 0.3 % (0.00-10.9); Hematocrit 33.1 VOL% (35.7-47.0); Hemoglobin 10.9 GM/DL (12.0-16.0); Immature Granulocytes % 0.7 %; Immature Granulocytes Absolute 0.07 #; Lymphocytes # 1.8 10*3/uL (1.4-4.0); Lymphocytes % 16.4 % (21.3-54.2); Mean Corpuscular HGB Conc 32.9 GM/DL (32-36); Mean Corpuscular Hemoglobin 31 PG (27-34); Mean Corpuscular Volume 94.6 FL (87-102); Mean Platelet Volume 9.7 FL (9.6-12.0); Monocytes # 0.8 10*3/uL (0.11-0.8); Monocytes % 7.6 % (1.7-12.7); Neutrophils % 74.8 % (38.7-73.9); Platelet Count 250 T/CUMM (130-400); Red Cell Distribution Width 14.1 % (9.3-17.3); White Blood Count 10.7 T/CUMM (4-12)
[2017-04-18 07:04] LABS: Osmolality,Calculated 286.8 MOS/KG (273-304); Potassium 4.2 MMOL/L (3.5-5.1)
[2017-04-18] MEDS: oxyCODONE IR 5 MG TABLET PO PRN (07:47)
[2017-04-18] MEDS: GABAPENTIN 400 MG CAPSULE PO SCH ×4 (08:56→20:11)
[2017-04-18] MEDS: ROSUVASTATIN 20 MG TABLET PO SCH (08:57)
[2017-04-18] MEDS: SERTRALINE 100 MG TABLET PO SCH (08:57)
[2017-04-18] MEDS: DOCUSATE SODIUM 100 MG CAPSULE PO SCH ×2 (08:58→20:11)
[2017-04-18] MEDS: OXYBUTYNIN 5 MG TABLET PO SCH ×2 (08:58→20:12)
[2017-04-18] MEDS ORDERED: PHENTERMINE HCL 37.5 MG PO SCH (09:00)
[2017-04-18] MEDS: amLODIPine 5 MG TABLET PO SCH (09:01)
[2017-04-18] MEDS: CELECOXIB 200 MG CAPSULE PO SCH (12:40)
[2017-04-18] MEDS: OLANZapine 5 MG TABLET PO SCH (20:11)
[2017-04-18] MEDS: PROMETHAZINE 25 MG TABLET PO SCH (20:11)
[2017-04-18] MEDS: QUEtiapine 100 MG TABLET PO SCH (20:12)
[2017-04-19] MEDS: FONDAPARINUX 2.5 MG/0.5 ML SYRINGE SUBCUT SCH (00:45)
[2017-04-19] MEDS: HYDROmorphone 2 MG/1 ML VIAL IV PRN (05:28)
[2017-04-19 06:45] LABS: Basophils # 0.1 10*3/uL (0.0-0.2); Basophils % 0.6 % (0.0-0.8); Eosinophils # 0.6 10*3/uL (0.0-0.87); Eosinophils % 5.8 % (0.00-10.9); Hematocrit 31.6 VOL% (35.7-47.0); Hemoglobin 10.5 GM/DL (12.0-16.0); Immature Granulocytes Absolute 0.09 #; Lymphocytes # 3.1 10*3/uL (1.4-4.0); Lymphocytes % 32.5 % (21.3-54.2); Mean Corpuscular HGB Conc 33.2 GM/DL (32-36); Mean Corpuscular Hemoglobin 32 PG (27-34); Mean Corpuscular Volume 95.8 FL (87-102); Mean Platelet Volume 9.6 FL (9.6-12.0); Monocytes # 0.9 10*3/uL (0.11-0.8); Monocytes % 9.4 % (1.7-12.7); Neutrophils # 4.8 10*3/uL (1.4-7.4); Neutrophils % 50.7 % (38.7-73.9); Platelet Count 219 T/CUMM (130-400); Red Cell Distribution Width 14.2 % (9.3-17.3); White Blood Count 9.4 T/CUMM (4-12)
[2017-04-19] MEDS: CELECOXIB 200 MG CAPSULE PO SCH (09:08)
[2017-04-19] MEDS: GABAPENTIN 400 MG CAPSULE PO SCH ×2 (09:09→12:44)
[2017-04-19] MEDS: DOCUSATE SODIUM 100 MG CAPSULE PO SCH (09:09)
[2017-04-19] MEDS: SERTRALINE 100 MG TABLET PO SCH (09:09)
[2017-04-19] MEDS: amLODIPine 5 MG TABLET PO SCH (09:10)
[2017-04-19] MEDS: ROSUVASTATIN 20 MG TABLET PO SCH (09:10)
[2017-04-19] MEDS: OXYBUTYNIN 5 MG TABLET PO SCH (09:10)
[2017-04-19] MEDS: oxyCODONE IR 5 MG TABLET PO PRN (10:42)
[2017-04-19 11:32] VITALS: BP 158/81
[2017-04-19] MEDS ORDERED: BISACODYL 10 MG SUPP RECTAL PRN (13:10)
== END 2017-04-19 15:13 | DRG 301 ==
LOC: N.OR 05:23 → N.SDSINP 05:24 → N.3E 07:27
PROVIDERS: ADMIT Orthopaedic Surgery; ATTEND Orthopaedic Surgery

== ENCOUNTER 2019-05-24 06:58 | Inpatient (IN) ==
[2019-05-24] MEDS ORDERED: HYDROmorphone 2 MG/1 ML VIAL IV STA (07:49)
[2019-05-24] MEDS ORDERED: SODIUM CHLORIDE 0.9% 1,000 ML IV STA (07:52)
[2019-05-24] MEDS ORDERED: PROMETHAZINE 25 MG/1 ML VIAL IM PRN (09:08)
[2019-05-24] MEDS ORDERED: BISACODYL 5 MG TABLET PO PRN (09:08)
[2019-05-24] MEDS ORDERED: ACETAMINOPHEN 325 MG TABLET PO PRN (09:08)
[2019-05-24] MEDS: metroNIDAZOLE INJ 500 MG in PREMIX 1 EACH IV SCH ×2 (09:32→18:17)
[2019-05-24] MEDS: NEBIVOLOL 10 MG TABLET PO SCH (09:32)
[2019-05-24] MEDS: GABAPENTIN 400 MG CAPSULE PO SCH ×4 (09:33→20:11)
[2019-05-24] MEDS: PANTOPRAZOLE 40 MG TABLET PO SCH (09:33)
[2019-05-24] MEDS: DEXTROSE 5% LACTATED RINGERS 1,000 ML IV SCH ×2 (10:03→18:17)
[2019-05-24] MEDS: ONDANSETRON 4 MG/2 ML VIAL IV PRN ×3 (13:21→21:53)
[2019-05-24] MEDS: HYDROmorphone 2 MG/1 ML VIAL IV PRN ×2 (13:22→20:08)
[2019-05-24] MEDS: CIPROFLOXACIN INJ 400 MG in PREMIX 1 EACH IV SCH ×2 (13:32→20:09)
[2019-05-24] MEDS: CARIPRAZINE 6 MG PO SCH (13:33)
[2019-05-24] MEDS: hydrOXYzine HCL 25 MG TABLET PO SCH (20:11)
[2019-05-24] MEDS: QUEtiapine 100 MG TABLET PO SCH (20:12)
[2019-05-24] MEDS: ENOXAPARIN 40 MG/0.4 ML SYRINGE SUBCUT SCH (21:53)
[2019-05-25] MEDS: HYDROmorphone 2 MG/1 ML VIAL IV PRN ×5 (00:10→22:21)
[2019-05-25] MEDS: metroNIDAZOLE INJ 500 MG in PREMIX 1 EACH IV SCH ×3 (02:22→18:30)
[2019-05-25] MEDS: ONDANSETRON 4 MG/2 ML VIAL IV PRN ×4 (02:22→22:32)
[2019-05-25] MEDS: DEXTROSE 5% LACTATED RINGERS 1,000 ML IV SCH ×3 (02:31→22:24)
[2019-05-25] MEDS: CIPROFLOXACIN INJ 400 MG in PREMIX 1 EACH IV SCH ×3 (04:08→20:23)
[2019-05-25 06:06] LABS: Basophils % 0.6 % (0.0-0.8); Eosinophils # 0.2 10*3/uL (0.0-0.87); Hematocrit 34.4 VOL% (35.7-47.0); Hemoglobin 11.2 GM/DL (12.0-16.0); Immature Granulocytes % 0.6 %; Immature Granulocytes Absolute 0.03 #; Lymphocytes # 1.7 10*3/uL (1.4-4.0); Lymphocytes % 32.9 % (21.3-54.2); Mean Corpuscular HGB Conc 32.6 GM/DL (32-36); Mean Corpuscular Volume 91.7 FL (87-102); Mean Platelet Volume 10.2 FL (9.6-12.0); Monocytes % 8.2 % (1.7-12.7); Neutrophils % 53.7 % (38.7-73.9); Platelet Count 212 T/CUMM (130-400); Red Blood Count 3.75 MC/CUMM (3.8-5.5); Red Cell Distribution Width 15.9 % (9.3-17.3)
[2019-05-25 06:22] LABS: Albumin 2.6 G/DL (3.4-5.0); Bilirubin,Total 1.1 MG/DL (0.2-1.0); Calcium 7.9 MG/DL (8.5-10.1); Osmolality,Calculated 278.4 MOS/KG (273-304); Total Protein 6.4 G/DL (6.4-8.3)
[2019-05-25] MEDS: PANTOPRAZOLE 40 MG TABLET PO SCH (10:19)
[2019-05-25] MEDS: NEBIVOLOL 10 MG TABLET PO SCH (10:20)
[2019-05-25] MEDS: GABAPENTIN 400 MG CAPSULE PO SCH ×4 (10:20→20:19)
[2019-05-25] MEDS: CARIPRAZINE 6 MG PO SCH (10:26)
[2019-05-25] MEDS: POLYETHYLENE GLYCOL POWDER 17 GM PACK PO SCH (16:31)
[2019-05-25] MEDS: QUEtiapine 100 MG TABLET PO SCH (20:19)
[2019-05-25] MEDS: ENOXAPARIN 40 MG/0.4 ML SYRINGE SUBCUT SCH (20:23)
[2019-05-25] MEDS: hydrOXYzine HCL 25 MG TABLET PO SCH (20:23)
[2019-05-26] MEDS: DEXTROSE 5% LACTATED RINGERS 1,000 ML IV SCH ×4 (02:48→20:51)
[2019-05-26] MEDS: metroNIDAZOLE INJ 500 MG in PREMIX 1 EACH IV SCH ×3 (02:55→18:04)
[2019-05-26] MEDS: HYDROmorphone 2 MG/1 ML VIAL IV PRN ×4 (02:56→23:42)
[2019-05-26] MEDS: CIPROFLOXACIN INJ 400 MG in PREMIX 1 EACH IV SCH ×3 (04:54→21:41)
[2019-05-26] MEDS: ONDANSETRON 4 MG/2 ML VIAL IV PRN ×2 (05:01→18:36)
[2019-05-26] MEDS: GABAPENTIN 400 MG CAPSULE PO SCH ×4 (09:07→21:42)
[2019-05-26] MEDS: PANTOPRAZOLE 40 MG TABLET PO SCH (09:08)
[2019-05-26] MEDS: POLYETHYLENE GLYCOL POWDER 17 GM PACK PO SCH (09:09)
[2019-05-26] MEDS: NEBIVOLOL 10 MG TABLET PO SCH (09:09)
[2019-05-26] MEDS: CARIPRAZINE 6 MG PO SCH (09:09)
[2019-05-26] MEDS ORDERED: SEROQUEL 400 MG PO SCH (21:00)
[2019-05-26] MEDS: ENOXAPARIN 40 MG/0.4 ML SYRINGE SUBCUT SCH (21:41)
[2019-05-26] MEDS: hydrOXYzine HCL 25 MG TABLET PO SCH (21:41)
[2019-05-27] MEDS: metroNIDAZOLE INJ 500 MG in PREMIX 1 EACH IV SCH ×2 (02:14→09:02)
[2019-05-27] MEDS: CIPROFLOXACIN INJ 400 MG in PREMIX 1 EACH IV SCH ×2 (04:00→11:11)
[2019-05-27] MEDS: HYDROmorphone 2 MG/1 ML VIAL IV PRN (04:01)
[2019-05-27 07:22] LABS: Basophils # 0.1 10*3/uL (0.0-0.2); Basophils % 1.2 % (0.0-0.8); Eosinophils # 0.2 10*3/uL (0.0-0.87); Eosinophils % 4.8 % (0.00-10.9); Hematocrit 34.7 VOL% (35.7-47.0); Hemoglobin 11.5 GM/DL (12.0-16.0); Immature Granulocytes % 1.4 %; Immature Granulocytes Absolute 0.06 #; Lymphocytes # 1.8 10*3/uL (1.4-4.0); Mean Corpuscular HGB Conc 33.1 GM/DL (32-36); Mean Corpuscular Volume 91.3 FL (87-102); Mean Platelet Volume 9.7 FL (9.6-12.0); Monocytes % 12.8 % (1.7-12.7); Neutrophils % 37.8 % (38.7-73.9); Platelet Count 217 T/CUMM (130-400); Red Cell Distribution Width 15.9 % (9.3-17.3); White Blood Count 4.2 T/CUMM (4-12)
[2019-05-27 07:41] LABS: Calcium 7.8 MG/DL (8.5-10.1)
[2019-05-27 07:48] LABS: Atypical Lymphocytes Few; Eosinophils 5 % (0-10); Hypochromasia 1+; Lymphocytes 44 % (20-55); Microcytosis Slight; Segmented Neutrophils 36 % (50-85); Total Cells Counted 100
[2019-05-27] MEDS: PANTOPRAZOLE 40 MG TABLET PO SCH (08:30)
[2019-05-27] MEDS: POLYETHYLENE GLYCOL POWDER 17 GM PACK PO SCH (08:30)
[2019-05-27] MEDS: GABAPENTIN 400 MG CAPSULE PO SCH ×3 (08:30→17:27)
[2019-05-27] MEDS: NEBIVOLOL 10 MG TABLET PO SCH (08:30)
[2019-05-27] MEDS: DEXTROSE 5% LACTATED RINGERS 1,000 ML IV SCH (08:35)
[2019-05-27] MEDS ORDERED: POTASSIUM CHLORIDE 20 MEQ TABLET PO ONE ×2 (09:11→12:30)
[2019-05-27] MEDS ORDERED: POTASSIUM CHLORIDE 20 MEQ TABLET PO PRN (09:58)
[2019-05-27] MEDS: CARIPRAZINE 6 MG PO SCH (10:36)
[2019-05-27 16:32] VITALS: BP 137/71
[2019-05-27] MEDS ORDERED: CARIPRAZINE 6 MG PO SCH (21:00)
== END 2019-05-27 17:21 | disposition home or self-care (01) | DRG 282 ==
LOC: EDUNIT# → EDBD → N.ED 06:58 → N.3E 08:46
PROVIDERS: ADMIT Student in an Organized Health Care Education/Training Program; ATTEND Student in an Organized Health Care Education/Training Program